=== PATIENT | female | born 1965 | race Caucasian/White ===

== ENCOUNTER 2022-07-10 09:03 | Emergency (ER) | payer OTHER, SELFPAY ==
--- NOTE | ~2022-07-10 | XR_ITS ---
EXAMINATION: XR chest 2V DATE: 07/10/2022 10:11 INDICATION: Cough and congestion TECHNIQUE: PA and lateral views of the chest are obtained. COMPARISON: None available FINDINGS: The lungs are free of acute opacities. No pleural effusion or pneumothorax. The cardiomedia stinal silhouette is normal. There is mild thoracic spondylosis. There are surgical clips in the righ t axilla. IMPRESSION: 1. No acute cardiopulmonary abnormality. Reviewed, dictated and finalized at location L. DEVELOPER
[2022-07-10 09:22] VITALS: BP 185/89; PULSE 85; RESP 16; TEMP 36.6; O2SAT 100
--- NOTE | 2022-07-10 09:43 | ED.GENADULT ---
HPI - General Adult General Chief complaint: Upper Respiratory Infection Stated complaint: Cough/Flank Pain Left Side Source: patient and RN notes reviewed History of Present Illness HPI narrative: 56-year-old female presents to urgent care with complaints of left mid to upper back pain that started this morning. Patient states she began having cold symptoms including congestion and cough yesterday. Reports pain with breathing. Denies any fevers, chest pain, vomiting, or diarrhea. Does report some shortness of breath but contributes that to her sinus congestion. Some parts of this dictation were generated by voice recognition software and may contain typographical and/or grammatical inaccuracies. Related Data Home Medications Medication Instructions Recorded Confirmed lisinopril 20 mg tablet 20 mg PO DIRECTED 07/10/22 07/10/22 Allergies Allergy/AdvReac Type Severity Reaction Status Date / Time No Known Allergies Allergy Verified 07/10/22 09:59 Review of Systems Review of Systems: CONSTITUTIONAL: Denies fever, chills, or sweats. EYES: Denies visual changes, redness, or discharge. ENT: Reports cough CARDIOVASCULAR: Denies chest pain, palpitations, or edema. RESPIRATORY: reports cough. GASTROINTESTINAL: Denies abdominal pain, nausea, vomiting, or diarrhea. GENITOURINARY: Denies dysuria or hematuria. SKIN: Denies rash or itching. MUSCULOSKELETAL: Denies back pain, joint pain, or myalgia. NEUROLOGIC: Denies headache, numbness, or weakness. PMFSH Comments At the time of my signature, I reviewed and agree with the nursing past medical, surgical, social, and family history. There is no relevant family history pertinent to the patient complaint. Exam Narrative: GENERAL: This is a well-nourished, well-developed patient, in no apparent distress. HEAD: normocephalic, atraumatic. EYES: PERRL. Sclera clear/white. Vision is grossly intact. EARS: External ears normal, auditory canals clear and without drainage, TMs normal without perforation. Hearing grossly intact. NOSE: Congestion THROAT: Mucous membranes moist, posterior pharynx clear. NECK: Neck supple, non-tender without lymphadenopathy, masses or thyromegaly. CARDIOVASCULAR: Regular rate and rhythm without murmurs, gallops, or rubs. RESPIRATORY: Diminished in LLL. GASTROINTESTINAL: Abdomen soft, non-tender, nondistended. Bowel sounds are active. No hepato-splenomegaly, or palpable masses. No guarding. SKIN: warm, intact with no suspicious lesions or rash, good texture and turgor. NEURO: awake, alert, and oriented to person, place and time. There were no obvious focal neurologic abnormalities. BACK: Nontender without deformity or crepitance. No flank tenderness. Course Course Level of Care: Express Care Visit Vital Signs Vital signs: Vital Signs Temperature 97.8 F 07/10/22 09:22 Pulse Rate 85 07/10/22 09:22 Respiratory Rate 16 07/10/22 09:22 Blood Pressure 185/89 H 07/10/22 09:22 Pulse Oximetry 100 07/10/22 09:22 Oxygen Delivery Room Air 07/10/22 09:22 Temperature 97.8 F 07/10/22 09:22 Pulse Rate 85 07/10/22 09:22 Respiratory Rate 16 07/10/22 09:22 Blood Pressure 185/89 H 07/10/22 09:22 Pulse Oximetry 100 07/10/22 09:22 Oxygen Delivery Room Air 07/10/22 09:22 Reviewed Medical Decision Making MDM Narrative Medical decision making narrative: Patient is informed that they may have pre-hypertension or hypertension based on a blood pressure reading in the department. I recommend the patient call the primary care provider listed on their discharge instructions or a physician of their choice this week to arrange follow-up for further evaluation of possible pre-hypertension or hypertension. Viral illness may last between 7-12days; antibiotic is NOT recommended at this time. Recommend antihistamine such as Benadryl at night time and Claritin/Zyrtec/Delaney during the day Cough syrup may cause drowsiness; avoid driving o
== END 2022-07-10 10:56 | disposition home or self-care (01) ==
PROVIDERS: Emergency Provider Nurse Practitioner Family
DX: J06.9 Acute upper respiratory infection, unspecified (principal); M54.6 Pain in thoracic spine; I10 Essential (primary) hypertension
CPT/HCPCS: 71046; 99203; G0463